=== PATIENT | female | born 1970 | race Caucasian/White ===

== ENCOUNTER 2024-06-15 19:17 | Outpatient (REF) | payer BC, SELFPAY | END 2024-06-15 19:18 | disposition home or self-care (01) | LOC: LAB 19:17 | PROVIDERS: PCP Family Medicine; Visit Provider Physician Assistant | DX: Z01.419 Encounter for gynecological examination (general) (routine) without abnormal findings (principal) | CPT/HCPCS: 87624; 88175 ==